=== PATIENT | female | born 1960 | race Caucasian/White ===

== ENCOUNTER 2017-06-21 07:20 | Day surgery (SDC) | payer BC ==
--- NOTE | 2017-04-07 19:12 | HP ---
CC: Dr. Edin Luz * ADMISSION HISTORY AND PHYSICAL: DATE OF ADMISSION: 04/19/17 ATTENDING SURGEON: Dr. Piyush Forrester * (DICTATED BY WILLIAN LAW) CHIEF COMPLAINT: Hemorrhoids. HISTORY OF PRESENT ILLNESS: This is a 56-year-old female, who has had intermittent rectal bleeding at the time of bowel movements for the past couple of years occurring approximately once every 10 days. More recently, in the past 2 to 3 months, she has noted increasing bleeding typically occurring with each and every bowel movement and sometimes painful with tenesmus. She was noted by her primary care provider to have a significant iron deficiency anemia (hemoglobin dropped from 12.1 last year to 7.7 in early March). The patient did have symptoms of fatigue, exhaustion, and shortness of breath with exertion. She was placed on an iron supplement and has increased her dietary iron intake with improvement in symptoms. She was seen by Dr. Singh for a scheduled visit recently and reported some of these symptoms to him. He encouraged her to go to the ED, but she refused. Her EKG at that time was normal and as noted above, her symptoms have gradually improved. She was seen by Dr. Forrester in the office on 03/30/17, at which time, exam showed a small skin tag at the 3 o'clock position, but no other external abnormalities. There were no fissures appreciated. Digital exam revealed no masses. On limited anoscopy , hemorrhoidal tissue without active bleeding was noted posteriorly. The patient was unable to tolerate additional anoscopy. Impression was that of bleeding internal hemorrhoids and recommendation was made for examination under anesthesia with banding of internal hemorrhoids. The patient did undergo a routine colonoscopy in August of this year, which she stated was normal exam including the removal of a few benign polyps. The patient would like to proceed as scheduled above. 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 PAST SURGICAL HISTORY: Previous surgeries include total hysterectomy with bilateral salpingo-oophorectomy, x1, nasal polypectomy, bunion surgery. No report of surgical or anesthesia complications. CURRENT MEDICATIONS: 1. Metformin 1000 mg b.i.d. 2. Bupropion extended release 150 mg q. day. 3. Bystolic 10 mg q. day. 4. Levothyroxine 50 mcg q. day. 5. Atorvastatin 10 mg q. day. 6. Ferrous sulfate 325 mg b.i.d. (she was instructed that this may be held perioperatively secondary to constipation effects). 7. Vitamin D 50,000 units once weekly. 8. Flonase 2 sprays each nostril once daily. 9. Thiamine 100 mg once daily. 10. Multivitamin once daily. 11. Clonazepam 0.5 mg t.i.d. 12. Melatonin 10 mg p.r.n. for insomnia. 13. Claritin-D once daily. DRUG ALLERGIES: MINOCYCLINE (hives). FAMILY HISTORY: There is no family history of anesthesia problems, bleeding, or clotting disorder. SOCIAL HISTORY: The patient lives alone. 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 She is a former smoker of 3 quarters of a pack per day for 30 years. She quit in 2008. She formerly drank up to 2 bottles of wine per day, but stopped altogether in December 2015. She denies other recreational drug use. REVIEW OF SYSTEMS: General: No recent constitutional symptoms or acute illnesses other than described in the HPI. Cardiovascular: As noted above. Recent visit with Dr. Singh. Echocardiogram to be scheduled (past workup including a Myoview stress test in 2014 was normal). She is treated for hypertension. Respiratory: Smoking history as noted. No recent chronic cough or shortness of breath. GI: No significant upper GI symptoms. See also above per HPI. : No problems reported. 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 Endocrine: She is type 2 diabetic and is on chronic thyroid replacement. PHYSICAL EXAMINATION GENERAL: Well-nourished, obese female, in no acute distress. VITAL SIGNS: Height 5 feet 8 inches, weight 220 pounds, blood pressure 124/76, pulse 84, respirations 18. HEENT: Pupils equal and round, reactive. EOMs intact. Mild conjunctival pallor. No scleral icterus. Oropharynx: Teeth in good repair. No intraoral lesions. NECK: No lymphadenopathy, thyromegaly, or masses. LUNGS: Clear to auscultation. No rales or wheezes. HEART: Regular rate and rhythm. No murmur noted. BREASTS: Not reexamined. ABDOMEN: Soft, nontender to palpation. No palpable masses or organomegaly. GENITALIA: Not done. RECTAL: Not done. Rectal exam per Dr. Forrester, as above. BACK: No spinous process or CVA tenderness. EXTREMITIES: No edema. NEUROLOGICAL: Grossly intact. SKIN: Warm and dry. No suspicious rashes or lesions noted. IMPRESSION: Internal hemorrhoids. PLAN: Examination under anesthesia; banding of hemorrhoids. WILLIAN LAW [id number]/[facility] #: [id number] MTDChago
--- NOTE | 2017-06-13 19:40 | HP ---
CC: Edin Luz MD * ADMISSION HISTORY AND PHYSICAL: DATE OF ADMISSION: 06/21/17 ATTENDING SURGEON: Piyush Forrester MD * (WILLIAN Chang, dictating). CHIEF COMPLAINT: Hemorrhoids. HISTORY OF PRESENT ILLNESS: This is a 56-year-old female who had been scheduled for examination under anesthesia and internal hemorrhoidal banding in April with Dr. Forrester. Her history is that of intermittent rectal bleeding at the time of bowel movements for the past couple of years, which had increased in frequency from approximately once every 10 days to daily in the past 2 to 3 months. She was noted by her primary care provider to have a significant iron deficiency anemia with a decrease to 7.7 hemoglobin in early March. This improved with oral iron replacement to over 11 in mid April. She did have symptoms of fatigue, exhaustion, and shortness of breath with exertion with subsequent improvement on iron therapy. She had been seen by Dr. Forrester in the office on 03/30/17, at which time examination showed a small skin tag at the 3 o'clock position, but no other external abnormalities. There were no fissures appreciated. Digital exam revealed no masses. On limited anoscopy , hemorrhoidal tissue without active bleeding was noted posteriorly. The patient was unable to tolerate additional anoscopy. Impression was that of bleeding internal hemorrhoids and recommendation was made for examination under anesthesia with banding of internal hemorrhoids. She had undergone routine colonoscopy in August 2016. That report was notable for a small polyp in the rectum which was removed and the patient's understanding was that it was benign. There was no mention of any hemorrhoidal disease from that study. The patient's scheduled surgery in April was delayed presumably by anesthesia for further medical clearance. She was subsequently seen by Dr. Luz and cleared to proceed with surgery (see separate note). The patient was told by her PCP that she may have some external hemorrhoids as well and she states that she has had some painful swelling in the perianal area over the past 2 months. This will be confirmed at the time of preop exam. Also of note, she will be having a previously scheduled EGD performed on 06/16/17 and she was requested to have that report sent to us as soon as possible. She understands the indications for surgery, the risks, benefits, and alternatives and would like to proceed as scheduled with examination under anesthesia and banding of internal hemorrhoids. She may need additional external hemorrhoidal excision pending a re-exam by Dr. Forrester. 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 PAST SURGICAL HISTORY: Previous surgeries include total hysterectomy with bilateral salpingo-oophorectomy for benign disease, x1, nasal polypectomy, bunion surgery. No report of surgical or anesthesia complications. CURRENT MEDICATIONS: 1. Metformin 1000 mg b.i.d. 2. Bupropion extended release 150 mg daily. 3. Bystolic 10 mg daily. 4. Levothyroxine 50 mcg daily. 5. Atorvastatin 10 mg daily. 6. Ferrous sulfate 325 mg b.i.d. 7. Vitamin D 50,000 units once weekly. 8. Flonase 2 sprays each nostril once daily. 9. Thiamine 100 mg once daily. 10. Multivitamin once daily. 11. Clonazepam 0.5 mg t.i.d. 12. Melatonin 10 mg q.h.s. p.r.n. for insomnia. 13. Claritin D once daily. ALLERGIES: MINOCYCLINE (hives). FAMILY HISTORY: No known family history of anesthesia problems, bleeding or clotting disorders. SOCIAL HISTORY: The patient lives alone. 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 She is a former smoker of 3 quarters of a pack per day for 30 years, she quit in 2008. She formerly drank up to 2 bottles of wine per day, but stopped altogether in December 2015. She denies other recreational drug use. REVIEW OF SYSTEMS: General: No recent constitutional symptoms or acute illnesses other than described in the HPI. Cardiovascular: She did undergo echocardiogram in 2014 with a Myoview stress test that was reportedly normal. She is treated for hypertension. See also attached from Dr. Luz. Respiratory: Smoking history as noted. No recent chronic cough or shortness of breath. GI: No significant upper GI symptoms. See also above per HPI. : No problems reported. 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 She has not had a baseline screening mammogram and is encouraged to have this scheduled and/or discussed with her PCP. Endocrine: She is a type 2 diabetic and on chronic thyroid replacement. She believes her most recent A1c is 6.9. She does not do fingersticks on a regular basis. PHYSICAL EXAMINATION GENERAL: Well-nourished, obese female, in no acute distress. VITAL SIGNS: Height 5 feet 8 inches, weight 222 pounds. Blood pressure 150/90 , pulse 88, respirations 16. BMI 33.8. HEENT: Pupils equal and round, reactive. EOMs intact. She does have some exophthalmos. There is no significant conjunctival pallor. No scleral icterus. Oropharynx; teeth are in good repair. No intraoral lesions. She states that one of her teeth (crown over a post is loose). NECK: No lymphadenopathy, thyromegaly, or masses. LUNGS: Clear to auscultation. No rales or wheezes. HEART: Regular rate and rhythm. No murmur noted. BREASTS: Not examined. ABDOMEN: Soft, nontender to palpation. No palpable masses or organomegaly. GENITALIA: Not done. RECTAL: Not done (per Dr. Forrester as noted in the HPI). BACK: No spinous process or CVA tenderness. EXTREMITIES: No edema. NEUROLOGICAL: Grossly intact. SKIN: Warm and dry. No suspicious rashes or lesions noted. IMPRESSION: Hemorrhoids. PLAN: Examination under anesthesia. Banding of hemorrhoids. Possible excision of external hemorrhoids pending re-evaluation by Dr. Forrester. WILLIAN CHANG [id number]/[facility] #: [id number] SHANI
[~2017-06-21 07:20] MED LIST: Buffered Lidocaine 0.9% SYRIN* 5 ML/SYR SYRINGE INTRADERM ONE; Famotidine IV* 10 MG/ML 2 ML (20 mg) IV ONE
[2017-06-21] MEDS ORDERED: Famotidine IV* 10 MG/ML 2 ML (20 mg) ONE (07:29)
[2017-06-21] MEDS ORDERED: Bupivacaine 0.25% SDV* 30 ML ONE ×2 (09:19→10:07)
[2017-06-21] MEDS ORDERED: Gelfoam 12-7 ADSORBABL SPONGE* 1 EA SPONGE ONE (09:20)
[2017-06-21] MEDS ORDERED: Midazolam* 1 MG/ML 5 ML VIAL (5 MG) ONE (09:27)
[2017-06-21] MEDS ORDERED: fentaNYL* 50 MCG/ML 2 ML VIAL (100 MCG VIAL) ONE ×3 (09:28→13:15)
[2017-06-21] MEDS ORDERED: Midazolam* 1 MG/ML 2 ML VIAL (2 MG) ONE (09:50)
[2017-06-21] MEDS ORDERED: EPHEDrine (Pressors)* 50 MG/ML VIAL ONE (10:07)
[2017-06-21] MEDS ORDERED: Ondansetron INJ* 2 MG/ML VIAL ONE (10:31)
--- NOTE | 2017-06-21 10:46 | BRIEFOPN ---
Brief Operative Note - Surgery Procedures: Pre-OP Diagnoses: Hemorrhoids Post-op Diagnosis: same Procedure: Exam under anesthesia, hemorrhoidectomy x2, hemorrhoidal banding x1 Surgeon: Usama Asst: none Anethesia: spinal EBL: minimal IVF: minimal crystalloid Specimen: hemorrhoids x2 Drains: none
[2017-06-21] MEDS ORDERED: HYDROcodone/ACETAMIN 5-325 MG* 1 TAB PO PRN (13:12)
[2017-06-21] MEDS ORDERED: fentaNYL* 50 MCG/ML 2 ML VIAL (100 MCG VIAL) IV PRN (13:12)
[2017-06-21] MEDS ORDERED: Naloxone* 0.4 MG/ML 1 ML VIAL IV PRN (13:12)
[2017-06-21] MEDS ORDERED: PROCHLORPERAZINE INJ 5 MG/ML 2 ML VIAL IV PRN (13:12)
[2017-06-21] MEDS ORDERED: oxyCODONE/Acetamin 5/325 MG* TAB PO PRN (13:12)
[2017-06-21] MEDS ORDERED: HYDROcodone/ACETAMIN 5-325 MG* 1 TAB ONE (13:15)
[2017-06-21 14:45] VITALS: BP 123/79
== END 2017-06-21 14:46 | disposition home or self-care (01) ==
LOC: OR 07:20
PROVIDERS: ATTEND Surgery
DX: K64.8 Other hemorrhoids (principal); I10 Essential (primary) hypertension; E78.5 Hyperlipidemia, unspecified; E03.9 Hypothyroidism, unspecified; F41.9 Anxiety disorder, unspecified; E11.9 Type 2 diabetes mellitus without complications; Z79.84 Long term (current) use of oral hypoglycemic drugs
CPT/HCPCS: 88304; A9270-GY; J2250; J2405; J3010